=== PATIENT | female | born 1945 | race Two or more races ===

== ENCOUNTER 2020-09-05 05:53 | Day surgery (SDC) | payer OTHER ==
[~2020-09-05 05:53] MED LIST: JANUMET XR 50-1 EAC1 PO; LISINOPRIL2.5 MG PO; METHOTREXATE2.5 MG PO
== END 2020-09-05 12:13 | disposition home or self-care (01) ==
LOC: CIR.AMB 05:53 → ADM 09-28 09:30
PROVIDERS: ATTEND Orthopaedic Surgery Hand Surgery
DX: M06.341 Rheumatoid nodule, right hand (principal); Z20.822 Contact with and (suspected) exposure to COVID-19